=== PATIENT | male | born 1995 | race African-American/Black ===

== ENCOUNTER 2019-09-30 17:34 | Inpatient (IN) | payer MEDICAID, OTHER ==
[~2019-09-30] VITALS: Ht 167.6 cm; Wt 64.9 kg
[2019-09-30] MEDS ORDERED: ALBUTEROL (0.083%) 2.5MG/3ML NEB HHN STA ×2 (17:54→21:22)
[2019-09-30] MEDS ORDERED: IPRATROPIUM BROMIDE (0.02%) 0.5MG/2.5ML NEB HHN STA (17:54)
[2019-09-30] MEDS ORDERED: PREDNISONE 20MG TABLET PO STA (17:54)
[2019-09-30 18:27] LABS: BASOPHILS % 1.2 % (0.0-2.0); EOSINOPHILS % 8.1 % (0.0-5.0); HEMATOCRIT. 48.5 % (42.0-52.0); HEMOGLOBIN. 15.3 g/dL (14.0-18.0); LYMPHOCYTES % 19.2 % (20.0-50.0); MEAN CORPUSCULAR VOLUME 85.5 fL (80.0-94.0); MEAN PLATELET VOLUME 9.2 fl (7.4-10.4); MONOCYTES % 9.8 % (2.0-8.0); NEUTROPHILS % 61.7 % (40.0-76.0); PLATELET 178 x1000/uL (130-400); RED BLOOD CELL COUNT 5.67 mill/uL (4.7-6.1); RED CELL DISTRIBUTION WIDTH 15.1 % (11.6-14.6)
[2019-09-30 18:33] LABS: CHLORIDE 111 mEq/L (98-107)
[2019-09-30] MEDS ORDERED: MAGNESIUM 2 G PREMIX 50 ML IV ONE (21:30)
[2019-09-30] MEDS ORDERED: ENOXAPARIN 40MG/0.4ML SYR SUBCUT SCH (22:15)
[2019-09-30] MEDS ORDERED: MAGNESIUM/ALUMINUM HYDROXIDE/SIMETHICONE 30ML UDC PO PRN (22:15)
[2019-09-30] MEDS ORDERED: HYDROCODONE/ACETAMINOPHEN 5/325MG TABLET PO PRN (22:15)
[2019-09-30] MEDS ORDERED: ACETAMINOPHEN 325MG TABLET PO PRN (22:15)
[2019-09-30] MEDS ORDERED: GUAIFENESIN 200MG/10ML SUGAR FREE UDC PO PRN (22:15)
[2019-09-30] MEDS ORDERED: CLONIDINE 0.1MG TABLET PO PRN (22:15)
[2019-09-30] MEDS ORDERED: BUDESONIDE 0.5MG/2ML NEB HHN SCH (22:15)
[2019-09-30] MEDS ORDERED: ONDANSETRON HCL 4MG/2ML INJ IV PRN (22:15)
[2019-09-30] MEDS ORDERED: DOCUSATE SODIUM 100MG CAPSULE PO PRN (22:15)
[2019-09-30 22:44] LABS: CHLORIDE 111 mEq/L (98-107)
[2019-09-30 22:46] LABS: BG BASE EXCESS -2.4 mmol/L (-2.0-2.0); BG CARBOXYHEMOGLOBIN 1.3 % (0.5-1.5); BG DEOXYHEMOGLOBIN 2.8 % (0.0-5.0); BG FRACTION INSPIRED OXYGEN 50; BG HCO3 ACT 22.8 mmol/L (22.0-26.0); BG METHEMOGLOBIN 0.2 % (0.0-1.5); BG OXYGEN SATURATION 97.2 % (92.0-98.5); BG OXYHEMOGLOBIN 95.7 % (94.0-97.0); BG PCO2 40.7 mmHg (35.0-45.0); BG PH 7.366 (7.350-7.450); BG PO2 88.5 mmHg (75.0-100.0); BG SAMPLE SITE RIGHT RADIAL; BG TOTAL HEMOGLOBIN 15.2 g/dL (12.0-18.0); BG VENT MODE MASK - VENTI
[2019-10-01] MEDS: IPRATROPIUM/ALBUTEROL 0.5-3(2.5)MG/3ML NEB NEB PRN ×3 (01:45→16:27)
[2019-10-01 05:09] LABS: HEMATOCRIT. 45.3 % (42.0-52.0); HEMOGLOBIN. 14.6 g/dL (14.0-18.0); MEAN CORPUSCULAR HEMOGLOBIN 26.9 pg (28.0-32.0); MEAN CORPUSCULAR VOLUME 83.6 fL (80.0-94.0); MEAN PLATELET VOLUME 9.1 fl (7.4-10.4); PLATELET 196 x1000/uL (130-400); RED BLOOD CELL COUNT 5.42 mill/uL (4.7-6.1); RED CELL DISTRIBUTION WIDTH 14.9 % (11.6-14.6)
[2019-10-01 05:35] LABS: LDL CHOLESTEROL 48 mg/dL (5-100)
[2019-10-01 05:36] LABS: HDL CHOLESTEROL 57 mg/dL (40-59)
[2019-10-01 05:38] LABS: CREATINE KINASE 236 IU/L (39-308)
[2019-10-01 05:39] LABS: CREATINE KINASE MB FRACTION 3.4 ng/mL (0.5-3.6)
[2019-10-01 06:41] LABS: PLATELET ESTIMATE NORMAL
[2019-10-01] MEDS: METHYLPREDNISOLONE SOD SUCC 40 MG/ML VIAL IV SCH ×3 (07:06→21:27)
[2019-10-01 08:40] VITALS: BP 113/62
[2019-10-01 08:43] VITALS: BP 113/62
[2019-10-01] MEDS ORDERED: ALBU2.5V13 NEB (08:53)
[2019-10-01] MEDS ORDERED: BECL10.6 INH (08:58)
[2019-10-01] MEDS ORDERED: ENOXAPARIN 40MG/0.4ML SYR SUBCUT SCH (09:30)
[2019-10-01 12:00] VITALS: BP 114/62
[2019-10-01] MEDS: LORATADINE 10MG TABLET PO SCH (14:01)
[2019-10-01] MEDS: NICOTINE 7MG PATCH TD SCH (14:01)
[2019-10-01 16:00] VITALS: BP 110/77
[2019-10-01] MEDS: MONTELUKAST SODIUM 10MG TABLET PO SCH (16:23)
[2019-10-01 16:29] LABS: CREATINE KINASE 199 IU/L (39-308)
[2019-10-01 16:31] LABS: CREATINE KINASE MB FRACTION 4.1 ng/mL (0.5-3.6)
[2019-10-01 20:45] VITALS: BP 111/70
[2019-10-01] MEDS: BUDESONIDE 0.5MG/2ML NEB HHN SCH (21:10)
[2019-10-01] MEDS: IPRATROPIUM/ALBUTEROL 0.5-3(2.5)MG/3ML NEB HHN SCH (21:11)
[2019-10-01] MEDS: FLUTICASONE PROPIONATE 50MCG/SPRAY BOTTLE BOTHNSTRLS SCH (21:27)
[2019-10-01] MEDS: FAMOTIDINE 20MG TABLET PO SCH (21:27)
[2019-10-02 00:29] VITALS: BP 111/76
[2019-10-02] MEDS: IPRATROPIUM/ALBUTEROL 0.5-3(2.5)MG/3ML NEB HHN SCH ×6 (01:10→21:28)
[2019-10-02 04:00] VITALS: BP 119/56
[2019-10-02] MEDS: METHYLPREDNISOLONE SOD SUCC 40 MG/ML VIAL IV SCH ×3 (05:13→21:47)
[2019-10-02 08:00] VITALS: BP 97/56
[2019-10-02 08:17] LABS: HEMATOCRIT. 46.9 % (42.0-52.0); HEMOGLOBIN. 14.9 g/dL (14.0-18.0); MEAN CORPUSCULAR HEMOGLOBIN 26.8 pg (28.0-32.0); MEAN CORPUSCULAR VOLUME 84.1 fL (80.0-94.0); MEAN PLATELET VOLUME 9.9 fl (7.4-10.4); PLATELET 210 x1000/uL (130-400); RED BLOOD CELL COUNT 5.58 mill/uL (4.7-6.1); RED CELL DISTRIBUTION WIDTH 15.1 % (11.6-14.6)
[2019-10-02 08:37] LABS: CHLORIDE 108 mEq/L (98-107)
[2019-10-02] MEDS: LORATADINE 10MG TABLET PO SCH (08:52)
[2019-10-02] MEDS: FAMOTIDINE 20MG TABLET PO SCH ×2 (08:52→21:47)
[2019-10-02] MEDS: FLUTICASONE PROPIONATE 50MCG/SPRAY BOTTLE BOTHNSTRLS SCH ×2 (08:52→21:47)
[2019-10-02] MEDS: NICOTINE 7MG PATCH TD SCH (08:52)
[2019-10-02] MEDS: BUDESONIDE 0.5MG/2ML NEB HHN SCH (10:01)
[2019-10-02 12:00] VITALS: BP 91/42
[2019-10-02] MEDS ORDERED: TERBUTALINE SULFATE 1MG/ML VIAL SUBCUT SCH (13:30)
[2019-10-02 16:00] VITALS: BP 109/51
[2019-10-02 16:37] LABS: *AMPHETAMINES SCREEN URINE NEGATIVE (NEGATIVE); *BARBITURATES SCREEN URINE NEGATIVE (NEGATIVE); *BENZODIAZEPINES SCREEN URINE NEGATIVE (NEGATIVE); *COCAINE SCREEN URINE NEGATIVE (NEGATIVE); METHADONE URINE SCREEN NEGATIVE (NEGATIVE); OPIATES URINE SCREEN NEGATIVE (NEGATIVE)
[2019-10-02 16:38] LABS: CANNABINOID URINE SCREEN PRESUMTIVE POSITIVE (NEGATIVE); PHENCYCLIDINE URINE SCREEN NEGATIVE (NEGATIVE)
[2019-10-02] MEDS: MONTELUKAST SODIUM 10MG TABLET PO SCH (17:51)
[2019-10-02 18:17] LABS: PLATELET ESTIMATE NORMAL
[2019-10-02 20:00] VITALS: BP 104/69
[2019-10-03] VITALS: BP 111/76
[2019-10-03] MEDS: IPRATROPIUM/ALBUTEROL 0.5-3(2.5)MG/3ML NEB HHN SCH ×5 (01:40→16:26)
[2019-10-03 04:00] VITALS: BP 118/58
[2019-10-03] MEDS: METHYLPREDNISOLONE SOD SUCC 40 MG/ML VIAL IV SCH ×2 (06:20→14:15)
[2019-10-03 08:00] VITALS: BP 91/43
[2019-10-03] MEDS: NICOTINE 7MG PATCH TD SCH (08:29)
[2019-10-03] MEDS: FAMOTIDINE 20MG TABLET PO SCH (08:29)
[2019-10-03] MEDS: LORATADINE 10MG TABLET PO SCH (08:29)
[2019-10-03] MEDS: FLUTICASONE PROPIONATE 50MCG/SPRAY BOTTLE BOTHNSTRLS SCH (08:29)
[2019-10-03 12:00] VITALS: BP 106/45
[2019-10-03 16:00] VITALS: BP 102/46
[2019-10-03] MEDS ORDERED: FLUT1DIS3 INH (16:00)
[2019-10-03] MEDS ORDERED: MED4 MT (16:00)
[2019-10-03] MEDS ORDERED: ALBU90AE INH (16:00)
[2019-10-03] MEDS: MONTELUKAST SODIUM 10MG TABLET PO SCH (17:00)
[2019-10-03 17:40] VITALS: BP 102/46
== END 2019-10-03 18:50 | disposition home or self-care (01) | DRG 189 ==
LOC: ER 17:34 → 6WST 21:43 → EDBEDREQ 21:48 → EDBEDREQTM 21:48 → ENRESERV 10-01 08:02
PROVIDERS: ADMIT Internal Medicine; ATTEND Internal Medicine
DX: J96.00 Acute respiratory failure, unspecified whether with hypoxia or hypercapnia (principal); J45.21 Mild intermittent asthma with (acute) exacerbation; F17.210 Nicotine dependence, cigarettes, uncomplicated; F12.90 Cannabis use, unspecified, uncomplicated; R73.9 Hyperglycemia, unspecified; D72.1 Eosinophilia; Z79.51 Long term (current) use of inhaled steroids; Z79.899 Other long term (current) drug therapy
CPT/HCPCS: 36415; 36600; 71045; 80048; 80053; 80061; 80305; 82375; 82550; 82553; 82805; 83036; 83735; 84443; 84484; 85025; 87804; 93005; 93970; 94640; 94644; 96365; 99285; J2920; J3105; J3475; J7512; J7611; J7620; J7626